=== PATIENT | female | born 1985 | race Caucasian/White ===

== ENCOUNTER 2021-06-06 18:02 | Emergency (ER) | payer OTHER ==
[2021-06-06] MEDS ORDERED: LORAZEPAM 1 MG TABLET ONE (18:58)
--- NOTE | 2021-06-06 20:19 | EDPHYS ---
Physician Documentation [facility] Name: Paige Cedeño Age: 35 yrs Sex: Female : 1985 Arrival Date: 06/06/2021 Time: 18:06 Bed 12 Private MD: ED Physician Benjamin Ye HPI: 06/06 19:17 This 35 yrs old Female presents to ER via Ambulatory with complaints of jmm Anxiety. 19:17 The patient presents to the emergency department with anxiety. Onset: The jmm symptoms/episode began/occurred today. Past psychiatric history: Psychiatric medications include: Klonipin. Associated signs and symptoms: Pertinent negatives: substance abuse, suicide ideation. This is a 35-year-old female with history of anxiety, hypothyroidism, presents emerge department with complaints of worsening panic attack stemming from a recent trip from [place]. Patient states this is for strep she is taken in 18 months and attempted to take 3.25 clonazepam's without relief.. 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 kg Historical: - Allergies: 18:25 No Known Allergies; kg - Home Meds: 18:25 buspirone 10 mg Oral tab 1 tab 2 times per day [Active]; Cymbalta 60 mg oral cpDR 1 cap kg once daily [Active]; clonazepam 0.25 mg Oral TbDi 1 tab 2 times per day [Active]; Synthroid 50 mcg Oral tab 1 tab once daily [Active]; Vyvanse 30 mg oral cap 1 cap once daily [Active]; - PMHx: 18:25 Anxiety; Depressive disorder; ADHD; Hypothyroidism; kg - PSHx: 18:25 None; kg - Immunization history:: Adult Immunizations not up to date, Client reports receiving the 2nd dose of the Covid vaccine, Date received: December 16, 2020 Client reports receiving the 1st dose of the Covid vaccine, November 25, 2020 Modern. - Social history:: Smoking status: Patient denies any tobacco usage or history of. Patient uses alcohol, occasionally. street drugs, marijuana. ROS: 19:17 Constitutional: Negative for fever, chills, and weight loss, Cardiovascular: Negative jmm for chest pain, palpitations, and edema, Respiratory: Negative for shortness of breath, cough, wheezing, and pleuritic chest pain. 19:17 Psych: Positive for anxiety. 19:17 All other systems are negative. Exam: 19:17 Constitutional: This is a well developed, well nourished patient who is awake, alert, jmm and in no acute distress. Head/Face: atraumatic. Eyes: EOMI, no conjunctival erythema appreciated ENT: Moist Mucus Membranes Neck: Trachea midline, Supple Chest/axilla: Normal chest wall appearance and motion. Cardiovascular: Regular rate and rhythm. No edema appreciated Respiratory: Normal respirations, no respiratory distress appreciated Abdomen/GI: Non distended, soft Back: Normal ROM Skin: General appearance color normal MS/ Extremity: Moves all extremities, no obvious deformities appreciated, no edema noted to the lower extremities Neuro: Awake and alert, normal gait 19:17 Psych: Behavior/mood is anxious. Vital Signs: 18:14 Pulse 84; Resp 18; Temp 98.8(TE); Pulse Ox 100% on R/A; Weight 68.04 kg; Height 5 ft. 5 kg in. (165.10 cm) (R); Pain 0/10; 18:14 BP 133 / 83 RA Sitting; kg 18:46 BP 129 / 80; Pulse 85; Resp 18; Pulse Ox 100% on R/A; Pain 0/10; ld1 20:30 BP 127 / 74; Pulse 69; Resp 15; Temp 98.6; Pulse Ox 99% on R/A; Pain 0/10; sj1 18:14 Body Mass Index 24.96 (68.04 kg, 165.10 cm) kg MDM: 18:27 Patient medically screened. [facility] 20:18 Data reviewed: vital signs, nurses notes. Counseling: I had a detailed discussion with alejo the patient and/or guardian regarding: the historical points, exam findings, and any diagnostic results supporting the discharge/admit diagnosis, radiology results, the need for outpatient follow up, to return to the emergency department if symptoms worsen or persist or if there are any questions or concerns that arise at home. ED course: Alert nontoxic in appearance in the ED. Patient states feeling much better. Patient advised follow-up with psychiatry or PCP and otherwise given strict return precautions. Patient understands agrees plan of care.. Administered Medications: 18:46 Drug: Ativan (LORazepam) 2 mg Route: PO; ld1 18:46 Follow up: Response: No adverse reaction ld1 Disposition: 06/07 05:55 Co-signature as Attending Physician, Benjamin Ye MD I agree with the assessment and tyrell plan of care. Disposition Summary: 06/06/21 20:19 Discharge Ordered Location: Home [facility] Condition: Stable jmm Diagnosis - Anxiety disorder, unspecified jmm Followup: jmm - With: Private Physician - When: 2 - 3 days - Reason: Recheck today's complaints, Continuance of care, Re-evaluation by your physician Discharge Instructions: - Discharge Summary Sheet [facility] - Panic Attack [facility] Forms: - Medication Reconciliation Form [facility] - Thank You Letter [facility] - Antibiotic Education [facility] - Prescription Opioid Use [facility] Prescriptions: - Hydroxyzine HCl 50 mg Oral Tablet - take 1 tablet by ORAL route every 8 hours As needed; 20 tablet; Refills: 0, jmm Product Selection Permitted Signatures: Benjamin Ye MD MD cha Mickail, Joel, PA PA jmm Dibbern, Lauren, RN RN ld1 Jaimie Lassiter RN RN kg
--- NOTE | 2021-06-06 20:19 | ER ---
Nurse's Notes [facility] Name: Paige Cedeño Age: 35 yrs Sex: Female : 1985 Arrival Date: 06/06/2021 Time: 18:06 Bed 12 Private MD: Diagnosis: Anxiety disorder, unspecified Presentation: 06/06 18:14 Chief complaint: Patient states: Pt stated, " I have sensory issues and anxiety issues kg and I'm from [facility] and I took a road trip with my boyfriend and I don't think I was ready for that. I've had multiple anxiety attacks since we've been on the road and I tried to take some more of my medications but it didn't help and I feel like I need to have in person treatment." Pt denies any suicidal or homicidal ideation and denies having a plan. Coronavirus screen:. Coronavirus screen: At this time, the client does not indicate any symptoms associated with coronavirus-19. Coronavirus screen: Vaccine status: Patient reports receiving the 2nd dose of the covid vaccine. Date December 16, 2020 Modern Patient reports receiving the 1st dose of the Covid vaccine. Date November 25, 2020 Modern. Ebola Screen: Patient negative for fever greater than or equal to 101.5 degrees Fahrenheit, and additional compatible Ebola Virus Disease symptoms Patient denies exposure to infectious person. Patient denies travel to an Ebola-affected area in the 21 days before illness onset. No symptoms or risks identified at this time. Initial Sepsis Screen: Does the patient meet any 2 criteria? No. Patient's initial sepsis screen is negative. Does the patient have a suspected source of infection? No. Patient's initial sepsis screen is negative. Risk Assessment: Do you want to hurt yourself or someone else? Patient reports no desire to harm self or others. Onset of symptoms was June 04, 2021. 18:14 Method Of Arrival: Ambulatory kg 18:14 Acuity: GISELE 4 kg Triage Assessment: 18:25 General: Appears in no apparent distress. Behavior is cooperative, anxious, crying. kg Pain: Denies pain. 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 kg Historical: - Allergies: 18:25 No Known Allergies; kg - Home Meds: 18:25 buspirone 10 mg Oral tab 1 tab 2 times per day [Active]; Cymbalta 60 mg oral cpDR 1 cap kg once daily [Active]; clonazepam 0.25 mg Oral TbDi 1 tab 2 times per day [Active]; Synthroid 50 mcg Oral tab 1 tab once daily [Active]; Vyvanse 30 mg oral cap 1 cap once daily [Active]; - PMHx: 18:25 Anxiety; Depressive disorder; ADHD; Hypothyroidism; kg - PSHx: 18:25 None; kg - Immunization history:: Adult Immunizations not up to date, Client reports receiving the 2nd dose of the Covid vaccine, Date received: December 16, 2020 Client reports receiving the 1st dose of the Covid vaccine, November 25, 2020. - Social history:: Smoking status: Patient denies any tobacco usage or history of. Patient uses alcohol, occasionally. street drugs, marijuana. Screenin:46 Abuse screen: Denies threats or abuse. Denies injuries from another. Nutritional ld1 screening: No deficits noted. Tuberculosis screening: No symptoms or risk factors identified. Fall Risk None identified. Assessment: 18:46 General: Appears in no apparent distress. comfortable, Behavior is cooperative, ld1 anxious, crying. Pain: Denies pain. Neuro: Level of Consciousness is awake, alert, obeys commands, Oriented to person, place, time, situation. Cardiovascular: Capillary refill < 3 seconds Patient's skin is warm and dry. Respiratory: Airway is patent Respiratory effort is even, unlabored, Respiratory pattern is regular, symmetrical. GI: Abdomen is flat, non-distended. : No signs and/or symptoms were reported regarding the genitourinary system. EENT: No signs and/or symptoms were reported regarding the EENT system. Derm: No signs and/or symptoms reported regarding the dermatologic system. Musculoskeletal: No signs and/or symptoms reported regarding the musculoskeletal system. Vital Signs: 18:14 Pulse 84; Resp 18; Temp 98.8(TE); Pulse Ox 100% on R/A; Weight 68.04 kg; Height 5 ft. 5 kg in. (165.10 cm) (R); Pain 0/10; 18:14 BP 133 / 83 RA Sitting; kg 18:46 BP 129 / 80; Pulse 85; Resp 18; Pulse Ox 100% on R/A; Pain 0/10; ld1 20:30 BP 127 / 74; Pulse 69; Resp 15; Temp 98.6; Pulse Ox 99% on R/A; Pain 0/10; sj1 18:14 Body Mass Index 24.96 (68.04 kg, 165.10 cm) kg ED Course: 18:06 Patient arrived in ED. as 18:12 Horacio Mcmullen PA is PHCP. alejo 18:12 Benjamin Ye MD is Attending Physician. [facility] 18:25 Triage completed. kg 18:25 Arm band placed on left wrist. kg 18:46 Patient has correct armband on for positive identification. Bed in low position. Call ld1 light in reach. Side rails up X2. Pulse ox on. NIBP on. Door closed. Noise minimized. Warm blanket given. 18:46 No provider procedures requiring assistance completed. ld1 20:30 Patient did not have IV access during this emergency room visit. sj1 Administered Medications: 18:46 Drug: Ativan (LORazepam) 2 mg Route: PO; ld1 18:46 Follow up: Response: No adverse reaction ld1 Outcome: 20:19 Discharge ordered by . [facility] 20:30 Discharged to home ambulatory. sj1 20:30 Condition: stable 20:30 Discharge instructions given to patient, Instructed on discharge instructions, follow up and referral plans. medication usage, Demonstrated understanding of instructions, follow-up care, medications. 20:31 Patient left the ED. sj1 Signatures: Horacio Mcmullen PA PA jmm Martinez, Amelia as Dibbern, Lauren, RN RN ld1 Jaimie Lassiter RN RN Italia Tate RN RN sj1
[2021-06-07 07:16] VITALS: BP 127/74; TEMP 98.6; O2SAT 99
== END 2021-06-06 20:31 | disposition home or self-care (01) ==
LOC: ER 18:02
DX: F41.9 Anxiety disorder, unspecified (principal); F32.9 Major depressive disorder, single episode, unspecified; E03.9 Hypothyroidism, unspecified
CPT/HCPCS: 99283